=== PATIENT | female | born 1990 | race Caucasian/White ===

== ENCOUNTER 2024-11-10 19:33 | Emergency (ER) | payer MEDICAID ==
[~2024-11-10] VITALS: Ht 167.6 cm; Wt 56.7 kg
[2024-11-10] MEDS ORDERED: SILVER NITRATE APPLICATOR STICK EACH TP ONE (21:55)
[2024-11-10] MEDS ORDERED: BUPIVACAINE PF 0.5% 30 ML VIAL ONE (21:55)
[2024-11-10] MEDS ORDERED: SODIUM BICARBONATE 4.2 % (NEUT) 5 ML VIAL ONE (21:55)
[2024-11-10] MEDS ORDERED: LIDOCAINE HCL 2% 20 ML VIAL ONE (21:56)
[2024-11-10] MEDS: SILVER NITRATE APPLICATOR STICK EACH TP ONE (22:08)
[2024-11-10 22:09] VITALS: TEMP 97.5
[2024-11-10] MEDS: BUPIVACAINE PF 0.5% 30 ML VIAL INJ ONE (22:09)
[2024-11-10] MEDS: LIDOCAINE HCL 2% 20 ML VIAL IJ ONE (22:09)
[2024-11-10] MEDS: ACETAMINOPHEN 500 MG TABLET PO ONE (22:09)
[2024-11-10] MEDS: SODIUM BICARBONATE 4.2 % (NEUT) 5 ML VIAL IJ ONE (22:09)
[2024-11-10] MEDS: CEphaleXIN 500 MG CAPSULE PO ONE (22:09)
[2024-11-10] MEDS ORDERED: ACETAMINOPHEN 500 MG TABLET ONE (22:11)
[2024-11-10] MEDS ORDERED: CEphaleXIN 500 MG CAPSULE ONE (22:11)
[2024-11-10] MEDS ORDERED: LORA0.5T48 PO ×2 (23:08→23:09)
[2024-11-10] MEDS ORDERED: CEPH500T PO (23:08)
[2024-11-10] MEDS ORDERED: HYDR-4209 PO ×2 (23:08→23:09)
[2024-11-10 23:34] VITALS: BP 122/74; O2SAT 99
== END 2024-11-10 23:34 | disposition home or self-care (01) ==
LOC: ER 19:33
DX: S61.011A Laceration without foreign body of right thumb without damage to nail, initial encounter (principal); R42 Dizziness and giddiness; R20.2 Paresthesia of skin; R29.0 Tetany; M79.644 Pain in right finger(s); Z60.2 Problems related to living alone; Z88.0 Allergy status to penicillin; Z88.1 Allergy status to other antibiotic agents; Z88.2 Allergy status to sulfonamides; Z88.7 Allergy status to serum and vaccine; W26.0XXA Contact with knife, initial encounter; Y93.89 Activity, other specified; Y92.090 Kitchen in other non-institutional residence as the place of occurrence of the external cause; Y99.8 Other external cause status
CPT/HCPCS: A4606; A4663; A9150; J3490